=== PATIENT | female | born 1970 | race Caucasian/White ===

== ENCOUNTER → 2020-12-14 | Outpatient (CLI) | payer OTHER | LOC: M.RAD 14:28 | PROVIDERS: ATTEND Internal Medicine Critical Care Medicine | DX: R01.1 Cardiac murmur, unspecified (principal); R05 Cough ==

== ENCOUNTER → 2021-01-19 | Outpatient (CLI) | payer OTHER ==
--- NOTE | 2021-01-19 09:40 | 2DMMODE ---
[place] [address] 2 D/M-MODE ECHOCARDIOGRAM Name: FABIAN SHEETS Room: [facility]#: [id number] Admission: 01/19/21 Attend Phys: Jeremy Cruz MD Discharge: Date of : 72 Date of Service: 01/19/21 0939 Report #: [id number] THIS REPORT FOR: cc: Sunshine Conti Maggie M. DO Liston, Michael J. MD [facility] ~ APPROVED REPORT Study performed: 01/19/2021 08:31:56 EXAM: Comprehensive 2D, Doppler, and color-flow Echocardiogram Patient Location: Out-Patient BSA: 2.02 HR: 75 bpm BP: 128/72 mmHg Other Information Study Quality: Good Indications Murmur 2D Dimensions IVSd: 11.59 (7-11mm) LVOT Diam: 20.21 (18-24mm) LVDd: 43.65 mm PWd: 9.87 (7-11mm) Ascending Ao: 33.68 (22-36mm) LVDs: 28.08 (25-40mm) Aortic Root: 28.06 mm Volumes Left Atrial Volume (Systole) LA ESV Index: 13.50 mL/m2 Aortic Valve AoV Peak Hayden.: 1.39 m/s AO Peak Gr.: 7.77 mmHg LVOT Max P.68 mmHg AO Mean Gr.: 4.19 mmHg LVOT Mean P.51 mmHg LVOT Max V: 1.08 m/s AO V2 VTI: 26.65 cm LVOT Mean V: 0.74 m/s SUSAN (VTI): 2.86 cm2 LVOT V1 VTI: 23.74 cm Mitral Valve E/A Ratio: 0.96 [place] [address] 2 D/M-MODE ECHOCARDIOGRAM Name: FABIAN SHEETS Room: [facility]#: [id number] Admission: 01/19/21 Attend Phys: Jeremy Cruz MD Discharge: Date of : 72 Date of Service: 01/19/21 0939 Report #: [id number] MV Decel. Time: 200.98 ms MV E Max Hayden.: 0.66 m/s MV PHT: 58.28 ms MVA (PHT): 3.77 cm2 TDI E/Lateral E': 6.00 E/Medial E': 5.08 Medial E' Hayden.: 0.13 m/s Lateral E' Hayden.: 0.11 m/s Pulmonary Valve PV Peak Hayden.: 0.86 m/s PV Peak Gr.: 2.95 mmHg Tricuspid Valve RAP Estimate: 5.00 mmHg TR Peak Gr.: 19.22 mmHg RVSP: 24.22 mmHg PA Pressure: 24.22 mmHg Left Ventricle The left ventricle is normal size. There is normal LV segmental wall motion. There is normal left ventricular wall thickness. Left ventricular systolic function is normal. LVEF is 55-60%. Grade I - abnormal relaxation pattern. Right Ventricle The right ventricle is normal size. The right ventricular systolic function is normal. Atria The left atrium size is normal. The right atrium size is normal. Aortic Valve The aortic valve is normal in structure. No aortic regurgitation is present. There is no aortic valvular stenosis. Mitral Valve The mitral valve is normal in structure. There is no mitral valve regurgitation noted. No evidence of mitral valve stenosis. Tricuspid Valve The tricuspid valve is normal in structure. Trace tricuspid regurgitation. Pulmonic Valve The pulmonary valve is normal in structure. There [place] [address] 2 D/M-MODE ECHOCARDIOGRAM Name: FABIAN SHEETS Room: [facility]#: [id number] Admission: 01/19/21 Attend Phys: Jeremy Cruz MD Discharge: Date of : 72 Date of Service: 01/19/21 0939 Report #: [id number] valvular regurgitation. Great Vessels The aortic root is normal in size. IVC is normal in size and collapses >50% with inspiration. Pericardium There is no pericardial effusion. <Conclusion> The left ventricle is normal size. There is normal left ventricular wall thickness. Left ventricular systolic function is normal. LVEF is 55-60%. Grade I - abnormal relaxation pattern. There is normal LV segmental wall motion. Trace tricuspid regurgitation. IVC is normal in size and collapses >50% with inspiration. <ELECTRONICALLY SIGNED> By: Miguel Rock MD, FACC 01/19/21938 8 8 Miguel Rock MD, FACC /INF
--- NOTE | 2021-01-30 12:38 | PF ---
[address] [address] PULMONARY FUNCTION REPORT Name: FABIAN SHEETS Room: [facility]#: [id number] Admission: 01/19/21 Attend Phys: Jeremy Cruz MD Discharge: Date of : 72 Report #: [id number] THIS REPORT FOR: cc: Sunshine Conti Maggie M. DO Pervez, Adeel MD ~ DATE OF VISIT: 01/19/2021 The FEV1/FVC ratio is normal at 71% with an FVC normal at 87% and FEV1 mildly decreased to 78%. FEF 25-75 is also decreased to 45%. After the administration of a bronchodilator, there is a 34% increase in FEF 25-75, which is just below the criteria for reversibility. There is no significant change in any of the other values mentioned here. The patient's post-bronchodilator FEV1 is 2.48 liters. The flow volume loop concave upwards. The total lung capacity is normal at 89% with residual volume mildly decreased to 75%. The DLCO as adjusted for hemoglobin is decreased to 77%. IMPRESSION: 1. There is mild obstruction as evidenced by mild reduction in FEV1 and concave upwards flow volume loop as well as reduction in FEF 25-75. There is some improvement after the administration of a bronchodilator, which is below criteria for reversibility. 2. There is isolated mild reduction in residual volume to 75% on lung volumes. This is likely a normal variant; however, mild restriction can also lead to this picture. 3. The DLCO as adjusted for hemoglobin is mildly decreased to 77%. <ELECTRONICALLY SIGNED> By: Jeremy Cruz MD 01/30/21 1238 08 [id number] Cruz MD /nt
== END ==
LOC: M.CRD 12-15 14:24
PROVIDERS: ATTEND Internal Medicine Critical Care Medicine
DX: J98.8 Other specified respiratory disorders (principal); R01.1 Cardiac murmur, unspecified

== ENCOUNTER → 2021-04-17 | Outpatient (CLI) | payer OTHER ==
--- NOTE | 2021-04-22 14:44 | SLEEP ---
[address] [address] SLEEP STUDY REPORT Name: FABIAN SHEETS Room: [facility]#: [id number] Admission: 04/17/21 Attend Phys: Jeremy Cruz MD Discharge: Date of : 72 Report #: [id number] THIS REPORT FOR: cc: Sunshine Conti Maggie M. DO Pervez, Adeel MD ~ DATE OF STUDY: 04/17/2021 SLEEP STUDY INDICATION FOR SLEEP STUDY: Excessive daytime sleepiness. INTERPRETATION: Total duration of the study is 476 minutes, out of which she was asleep for 404 minutes with an overall sleep efficiency of 85%. Sleep onset occurred around 8 minutes after lying in bed. REM onset was 99 minutes after sleep onset. N1 sleep duration is 9%, N2 duration is 60%, N3 duration is 6% and REM duration is 24%. We only recorded rare sleep related respiratory events, these included 5 obstructive apneas, 1 hypopnea and 16 respiratory effort-related arousals. The patient's overall apnea-hypopnea index is 0.9. Her respiratory disturbance index is also normal at 3.3. Body position data indicates the patient was lying supine for 239 minutes, the rest of the time she was on the right side. Supine apnea-hypopnea index is slightly higher at 4. Mean heart rate is 69. There were no significant periodic limb movements recorded. Arousal index is normal at 6.5. O2 saturation is adequately maintained during this sleep study. Occasional light to loud snoring was observed during the sleep study. IMPRESSION: This is an essentially unremarkable sleep study. Obstructive sleep apnea is not detected during the sleep study. O2 saturation is also adequately maintained. Some snoring was observed during the sleep study. RECOMMENDATIONS: As the patient is continuing to complain of insomnia as well as daytime sleepiness, I gave her instructions regarding sleep restriction therapy, we will see if she has a result, is able to sleep more continuously and therefore also has improvement in daytime sleepiness. If this is not the case, then we can bring her back to the sleep lab and repeat a sleep study and then perform an MSLT the next morning. While not detected here with the exception that there is some snoring, based on her history as well as physical examination findings, I do have suspicion that she likely has increase in upper airway resistance and therefore if she has persistent complaints then subsequently we can still consider CPAP therapy even though she does not meet criteria for a diagnosis of sleep apnea. Such therapy; however, will likely not be paid for by her insurance [place] [address] SLEEP STUDY REPORT Name: FABIAN SHEETS Room: [facility]#: [id number] Admission: 04/17/21 Attend Phys: Jeremy Cruz MD Discharge: Date of : 72 Report #: [id number] out of pocket. Weight loss would be of benefit His entire sleep study was reviewed by board certified sleep physician. <ELECTRONICALLY SIGNED> By: Jeremy Cruz MD 04/22/21 1444 1256 [id number] Cruz MD /nt
== END ==
LOC: M.SLEEPLAB 02-05 09:00
PROVIDERS: ATTEND Internal Medicine Critical Care Medicine
DX: G47.10 Hypersomnia, unspecified (principal); R06.81 Apnea, not elsewhere classified; R06.83 Snoring